=== PATIENT | male | born 1930 | race Caucasian/White ===

== ENCOUNTER → 2016-04-28 | Day surgery (SDC) | payer OTHER ==
[~2016-04-28] VITALS: Ht 177.8 cm; Wt 72.2 kg
[~2016-04-28] MED LIST: ACETAMINOPHEN 1000 MG/100 ML VIAL IV ONE; ACETAMINOPHEN 500 MG CPLT PO PRN; AMLO10TA2 PO; APIDINJ SQ; ATROPINE SULFATE 1% OPHT SOLN 2 ML BTL ONE; ATROPINE SULFATE 1% OPHT SOLN 5 ML BTL LEFT EYE SCH; BALANCED SALT SOLN OPHT IRRIG 15 ML BTL ONE; CARV25TA PO; CARV6.252 PO; CYCLOPENTOLATE HCL 1% OPHT SOLN 2 ML BTL LEFT EYE SCH; DEXAMETHASONE SOD PHOS 4 MG/ML VIAL ONE; DO NOT ADM ANY ANTICOAGULANT DRUGS XX PRN; ENAL10TA PO; ENAL20TA PO; EPINEPHrine HCL (1:1000) 1 MG/ML VIAL ONE; FAMOTIDINE 20 MG/2 ML VIAL ONE; FERR325T PO; INSULIN HUMAN REGULAR 1,000 UNITS/10 ML VIAL SQ PRN; LACTATED RINGER'S 1000 ML IV SCH; LANTUS2P SQ; LOVA40TA PO; METF500T PO; METOPROLOL TARTRATE 25 MG TAB PO PRN; MIDAZOLAM HCL 2 MG/2 ML VIAL ONE; ONDANSETRON HCL 4 MG/2 ML VIAL IM PRN; ONDANSETRON HCL 4 MG/2 ML VIAL IV PUSH ONE; PHENYLEPHRINE HCL 2.5% OPTH SOLN 2 ML BTL LEFT EYE SCH; PROPOFOL 200 MG/20 ML AMP IV ONE; SODIUM CHLORID 0.9% 500 ML IV SCH; STERILE WATER FOR INJ 20 ML VIAL ONE; TIMO0.5S30 LEFT EYE; TIMO5SOL EACH EYE; TOBRAMYCIN/DEXAMETHASONE OPTH OINT 3.5 GM TUBE ONE; TRIAMCINOLONE ACETONIDE/PF 40 MG/ML OPTH VIAL ONE; TROPICAMIDE 1% OPTH SOLN 2 ML BTL LEFT EYE SCH; ceFAZolin INJ 1,000 MG VIAL ONE; ePHEDrine/NS 50 MG/5 ML SYR IV ONE; oxyCODONE/ACETAMINOPHEN 5 MG/325 MG TAB PO PRN
[2016-04-28 08:18] LABS: AUTOMATED NEUTROPHIL # 3.9 TH/MM3 (1.8-7.7); BASOPHIL % 0.6 % (0.0-2.0); EOSINOPHIL # 0.3 TH/MM3 (0-0.4); EOSINOPHIL % 3.7 % (0.0-4.0); HEMATOCRIT 36.6 % (39.0-51.0); HEMO FLAGS DIFF FINAL; LYMPH % 28.7 % (9.0-44.0); MEAN CELL VOLUME 88.9 FL (80.0-100.0); MEAN CORPUSCULAR HGB CONC 34.9 % (32.0-36.0); PLATELET COUNT 227 TH/MM3 (150-450); RED BLOOD COUNT 4.11 MIL/MM3 (4.50-5.90); RED CELL DISTRIBUTION WIDTH 12.6 % (11.6-17.2); WHITE BLOOD COUNT 6.8 TH/MM3 (4.0-11.0)
[2016-04-28 08:21] VITALS: BP 170/78; PULSE 66; RESP 20; TEMP 97.8; O2SAT 99
[2016-04-28 12:40] VITALS: BP 149/75; PULSE 62; RESP 18; TEMP 98.2; O2SAT 98
--- NOTE | 2016-05-04 05:53 | MP ---
cc: TRIXIE BERMUDEZ M.D. DATE OF SURGERY 04/28/2016 PREOPERATIVE DIAGNOSIS Nonclearing vitreous hemorrhage with suspected proliferative diabetic retinopathy, left eye. POSTOPERATIVE DIAGNOSIS Nonclearing vitreous hemorrhage with proliferative diabetic retinopathy left eye. INDICATIONS Mr. Trujillo is an 86-year-old gentleman with a history of diabetes who presented with decreased vision in his left eye and vision down to 1/200. The left retina could not be visualized due to vitreous hemorrhage. He wished to proceed electively with a vitrectomy and laser panretinal photocoagulation to treat the hemorrhage and underlying diabetic retinopathy. The risks and benefits of surgery were discussed with the patient as well as the alternative of observation. Informed consent was obtained. No guarantee was made as to visual outcome. PROCEDURE He was brought to [facility] Operating Room 1 and placed on the operating table. Appropriate anesthesia monitoring devices were applied and he was placed under general anesthesia using laryngeal mask. The left eye was identified as the operative site and prepped and draped in the usual and sterile fashion. A lid speculum was placed. The microscope was brought around and adjusted at this time. An appropriate time-out was called with the surgical team agreeing to the surgical site and planned procedure. Using the Alejandro 23-gauge vitrectomy system, the trocar cannulas were placed 3.5 mm posterior to the limbus after first displacing the conjunctiva and with a beveled entrance. The first one was placed at approximately 3:15 o'clock and verified to be in the posterior chamber. An infusion cannula was affixed to it and it was turned on. Two additional cannulas were placed at 10 at 2 o'clock. Using the wide-angle viewing system, the eye was entered with the Endo-hydraulic barker operator light pipe and vitrectomy cutter and a vitrectomy was carried out. The view was poor due to red blood cells resting on the anterior surface of the IOL, so using a 30-gauge needle on a syringe through a limbal entrance site, this blood was vacuumed off the lens allowing for a much better view. Once the vitrectomy had been completed, preretinal hemorrhage was vacuumed off the surface using a soft-tip linear extrusion needle. Using the endolaser probe and a power of 250 milliwatts and 0.1-second exposure, panretinal photocoagulation was performed with the lighted endolaser probe. Plugs were placed back in the eye and, using the laser indirect delivery system, additional laser was placed in the periphery using a power of 350 milliwatts and 0.15-second exposure. A total of 1241 laser treatments were placed. Next, an air-fluid exchange was performed using the soft-tip linear extrusion needle. The plugs were placed back in the cannulas and they were removed one by one with tamponade at the site with a cotton swab and diathermy to the overlying conjunctival wound leaving the eye with good pressure and no visible air leaks. Atropine drops were placed on the cornea followed by subconjunctival actions of Ancef 125 mg in 0.5 cc and Decadron 2 mg in 0.5 cc. The lid speculum was removed and the patient was undraped. TobraDex ointment was placed on the cornea and then the left eye was patched and shielded. The patient had the laryngeal mask removed in the room and was returned to Recovery in good condition. MD CURLY Escalona/NILO /11:39 AM /5:40 AM
== END | disposition home or self-care (01) ==
LOC: HSDC 07:10
PROVIDERS: ATTEND Ophthalmology
DX: H43.12 Vitreous hemorrhage, left eye (principal); E11.3592 Type 2 diabetes mellitus with proliferative diabetic retinopathy without macular edema, left eye; Z79.4 Long term (current) use of insulin
CPT/HCPCS: 00145; 67113; 82948; 85025; J0131; J0171; J0690; J1100; J2250; J2405; J3010; J7120; J3300